=== PATIENT | female | born 1990 | race Caucasian/White ===

== ENCOUNTER 2019-10-06 10:07 | Emergency (ER) | payer OTHER, SELFPAY ==
[2019-10-06] MEDS ORDERED: DERMABOND SKIN ADHESIVE TOP ONE (11:18)
[2019-10-06] MEDS ORDERED: LIDOCAINE 1% W/EPI 1:100,000 MDV 20 ML VIAL ONE (11:41)
--- NOTE | 2019-10-06 12:04 | ER ---
Nurse's Notes [facility] Name: Gely Raymond Age: 28 yrs Sex: Female : 1990 Arrival Date: 10/06/2019 Time: 10:07 Bed 28 Private MD: Diagnosis: Superficial injury of head;Facial Laceration Presentation: 10/05 10:21 Chief complaint: Patient states: cut right side of forehead on piece of glass, bleeding iw controlled. Coronavirus screen: The patient has NOT traveled to [place] in the past 14 days. Proceed with normal triage procedures. Ebola Screen: Patient negative for fever greater than or equal to 101.5 degrees Fahrenheit, and additional compatible Ebola Virus Disease symptoms Patient denies exposure to infectious person. Patient denies travel to an Ebola-affected area in the 21 days before illness onset. No symptoms or risks identified at this time. Complicating Factors: There are no complicating factors for this patient. Initial Sepsis Screen: Does the patient meet any 2 criteria? No. Patient's initial sepsis screen is negative. Does the patient have a suspected source of infection? No. Patient's initial sepsis screen is negative. Risk Assessment: Do you want to hurt yourself or someone else? Patient reports no desire to harm self or others. 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 - Social history:: Smoking status: . Screenin:18 Abuse screen: Denies threats or abuse. Denies injuries from another. Nutritional aj1 screening: No deficits noted. Tuberculosis screening: No symptoms or risk factors identified. Assessment: 11:18 General: Appears in no apparent distress. comfortable, Behavior is calm, cooperative, aj1 appropriate for age. Pain: Complains of pain in right hinduism. Neuro: Level of Consciousness is awake, alert, obeys commands, Oriented to person, place, time, situation. Cardiovascular: Patient's skin is warm and dry. Respiratory: Airway is patent Respiratory effort is even, unlabored, Respiratory pattern is regular, symmetrical. GI: No signs and/or symptoms were reported involving the gastrointestinal system. : No signs and/or symptoms were reported regarding the genitourinary system. EENT: No signs and/or symptoms were reported regarding the EENT system. Derm: Skin is pink, warm \T\ dry. normal. Musculoskeletal: Circulation, motion, and sensation intact. Injury Description: Laceration sustained to right hinduism is bleeding moderately. 12:22 Reassessment: Patient appears in no apparent distress at this time. No changes from aj1 previously documented assessment. Patient and/or family updated on plan of care and expected duration. Pain level reassessed. Patient is alert, oriented x 3, equal unlabored respirations, skin warm/dry/pink. Vital Signs: 10:21 BP 118 / 90; Pulse 99; Resp 16; Temp 97.8; Pulse Ox 100% ; Weight 72.57 kg; Height 5 iw ft. 5 in. (165.10 cm); Pain 3/10; 10:21 Body Mass Index 26.63 (72.57 kg, 165.10 cm) iw ED Course: 10:07 Patient arrived in ED. as 10:13 Hugo Kim PA is PHCP. [facility] 10:13 Lito Gonzalez MD is Attending Physician. [facility] 10:22 Triage completed. iw 10:23 Arm band placed on. iw 10:54 Jayde Paul, PATRIA is Primary Nurse. aj1 11:18 Patient has correct armband on for positive identification. Bed in low position. Call aj1 light in reach. Side rails up X 1. 11:18 No provider procedures requiring assistance completed. aj1 11:20 Wound care: to laceration located on right hinduism was cleaned with Hibiclens, irrigated aj1 with normal saline, Patient tolerated well. 12:22 Patient did not have IV access during this emergency room visit. aj1 Administered Medications: 11:47 Drug: Lidocaine (1 %) 20 ml Volume: 20 ml; Route: Infiltration; aj1 12:20 Follow up: Response: No adverse reaction aj Outcome: 12:03 Discharge ordered by . [facility] 12:22 Discharged to home ambulatory. aj1 12:22 Condition: good 12:22 Discharge instructions given to patient, Instructed on discharge instructions, follow up and referral plans. wound care, Demonstrated understanding of instructions, follow-up care, wound care, Prescriptions given X 1. 12:23 Patient left the ED. aj1 Signatures: Jayde Paul RN RN aj1 Hugo Kim PA PA jmm Martinez, Amelia as Williams, Irene, RN RN iw
--- NOTE | 2019-10-06 12:04 | EDPHYS ---
Physician Documentation [facility] Name: Gely Raymond Age: 28 yrs Sex: Female : 1990 Arrival Date: 10/06/2019 Time: 10:07 Bed 28 Private MD: LI Physician Lito Gonzalez HPI: 10/05 10:37 This 28 yrs old Female presents to ER via Ambulatory with complaints of jmm Laceration To Head. 10:37 The patient or guardian reports injury, a laceration. The complaints affect the jmm forehead. Onset: The symptoms/episode began/occurred acutely, just prior to arrival. Associated signs and symptoms: Loss of consciousness: This patient did not experience any loss of consciousness. This is a 28 year old female with no chronic medical conditions that presents to the ED with a laceration to the right side of her forehead. Patient was cut while crawling into her window. Patient states she had to break the glass to get into her window. Patient is UTD on tetanus immunization.. 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 - Social history:: Smoking status: . ROS: 10:37 Constitutional: Negative for fever, chills, and weight loss, Cardiovascular: Negative jmm for chest pain, palpitations, and edema, Respiratory: Negative for shortness of breath, cough, wheezing, and pleuritic chest pain. 10:37 Skin: Positive for laceration(s). 10:37 Neuro: Negative for loss of consciousness. 10:37 All other systems are negative. Exam: 10:37 Constitutional: This is a well developed, well nourished patient who is awake, alert, jmm and in no acute distress. 10:37 Eyes: EOMI, no conjunctival erythema appreciated ENT: Moist Mucus Membranes Neck: Trachea midline, Supple Chest/axilla: Normal chest wall appearance and motion. Cardiovascular: Regular rate and rhythm. No edema appreciated Respiratory: Normal respirations, no respiratory distress appreciated Abdomen/GI: Non distended, soft Back: Normal ROM 10:37 Head/face: 2 cm laceration noted to the right side of the forehead. 10:37 Skin: 2 cm laceration noted to the right side of the forehead. 10:37 Neuro: Orientation: is normal, Mentation: is normal, Memory: is normal. 10:37 Psych: Behavior/mood is pleasant, cooperative. Vital Signs: 10:21 BP 118 / 90; Pulse 99; Resp 16; Temp 97.8; Pulse Ox 100% ; Weight 72.57 kg; Height 5 iw ft. 5 in. (165.10 cm); Pain 3/10; 10:21 Body Mass Index 26.63 (72.57 kg, 165.10 cm) iw Laceration: 12:02 Wound Repair of 3cm ( 1.2in ) subcutaneous laceration to right baptism. Distal m neuro/vascular/tendon intact. Anesthesia: Local anesthetic administered with 3 mls of 1% lidocaine w/ Epi. Wound prep: Simple cleansing with hibiclenz by me. Skin closed with 6 6-0 Prolene using simple sutures and sterile technique. Patient tolerated well. MDM: 10:24 Patient medically screened. [facility] 12:02 Data reviewed: vital signs, nurses notes. Counseling: I had a detailed discussion with [facility] the patient and/or guardian regarding: the historical points, exam findings, and any diagnostic results supporting the discharge/admit diagnosis, the need for outpatient follow up, to return to the emergency department if symptoms worsen or persist or if there are any questions or concerns that arise at home. ED course: Patient given wound infection return precautions. Patient understood and agrees with the plan of care. . 10/05 10:36 Order name: Wound Care; Complete Time: 11:18 [facility] 10/05 10:36 Order name: Dermabond; Complete Time: 11:18 [facility] Administered Medications: 11:47 Drug: Lidocaine (1 %) 20 ml Volume: 20 ml; Route: Infiltration; aj1 12:20 Follow up: Response: No adverse reaction aj1 Disposition: 18:17 Co-signature as Attending Physician, Lito Gonzalez MD I agree with the assessment and [facility] plan of care. Disposition: 10/06/19 12:03 Discharged to Home. Impression: Superficial injury of head, Facial Laceration. - Condition is Stable. - Discharge Instructions: Head Injury, Adult, Facial Laceration. - Medication Reconciliation Form, Thank You Letter, Antibiotic Education, Prescription Opioid Use form. - Follow up: Private Physician; When: 5 - 6 days; Reason: Staple/Suture removal. Signatures: Jayde Paul RN RN aj1 Lito Gonzalez MD MD cha Mickail, Joel, PA PA jmm Williams, Irene, RN RN iw Corrections: (The following items were deleted from the chart) 12:23 12:03 10/06/2019 12:03 Discharged to Home. Impression: Superficial injury of head; aj1 Facial Laceration. Condition is Stable. Forms are Medication Reconciliation Form, Thank You Letter, Antibiotic Education, Prescription Opioid Use. Follow up: Private Physician; When: 5 - 6 days; Reason: Staple/Suture removal. margaux
[2019-10-06 12:49] VITALS: BP 118/90; TEMP 97.8; O2SAT 100
== END 2019-10-06 12:23 | disposition home or self-care (01) ==
LOC: ER 10:07
PROC: 0JQ10ZZ Repair Face Subcutaneous Tissue and Fascia, Open Approach (ICD-10-PCS; principal; 2019-10-06)
DX: S01.81XA Laceration without foreign body of other part of head, initial encounter (principal); W25.XXXA Contact with sharp glass, initial encounter; Y93.9 Activity, unspecified; Y92.018 Other place in single-family (private) house as the place of occurrence of the external cause
CPT/HCPCS: 99284

== ENCOUNTER 2023-04-23 22:57 | Emergency (ER) | payer BC, OTHER ==
[2023-04-23] MEDS ORDERED: DIPHENHYDRAMINE 25 MG TAB/CAP ONE (23:59)
[2023-04-23] MEDS ORDERED: predniSONE 20 MG TAB ONE (23:59)
--- NOTE | 2023-04-24 00:42 | ER ---
Nurse's Notes [facility] Name: Gely Raymond Age: 32 yrs Sex: Female : 1990 Arrival Date: 04/23/2023 Time: 22:57 Bed 9 Private MD: Diagnosis: Other acute conjunctivitis Presentation: 04/23 23:16 Chief complaint: Patient states: itching, redness and swelling to bilateral pf1 conjunctiva,onset 2130, S/P touching eyes after handling dryer sheets. Patient stated took Benadryl 25mg at 2145. Coronavirus screen: Vaccine status: Patient reports being unvaccinated. Client denies travel out of the [place] in the last 14 days. At this time, the client does not indicate any symptoms associated with coronavirus-19. Ebola Screen: Patient negative for fever greater than or equal to 101.5 degrees Fahrenheit, and additional compatible Ebola Virus Disease symptoms. Initial Sepsis Screen: Does the patient meet any 2 criteria? HR > 90 bpm. No. Patient's initial sepsis screen is negative. Does the patient have a suspected source of infection? No. Patient's initial sepsis screen is negative. Risk Assessment: Do you want to hurt yourself or someone else? Patient reports no desire to harm self or others. 23:16 Method Of Arrival: Ambulatory pf1 23:16 Acuity: SPENCER 4 pf1 Triage Assessment: 23:25 General: see nurse assessment. 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 Last tetanus immunization: < 10 years ago Flu vaccine is not up to date. - Social history:: Smoking status: Patient denies any tobacco usage or history of. Patient/guardian denies using alcohol, street drugs. Screenin:24 [facility] ED Fall Risk Assessment (Adult) History of falling in the last 3 months, pf1 including since admission No falls in past 3 months (0 pts) Confusion or Disorientation No (0 pts) Intoxicated or Sedated No (0 pts) Impaired Gait No (0 pts) Mobility Assist Device Used No (0 pt) Altered Elimination No (0 pt) Score/Fall Risk Level 0 - 2 = Low Risk Oriented to surroundings, Maintained a safe environment, Educated pt \T\ family on fall prevention, incl call for assistance when getting out of bed, Assessed \T\ reinforced patient's understanding of fall precautions, Provided non-skid footwear, Hourly rounding (assess needs \T\ fall precautionary measures) done, Used ambulatory aids as needed (educated on \T\ assisted with), Used gait belt as appropriate. Abuse screen: Denies threats or abuse. Nutritional screening: No deficits noted. Tuberculosis screening: No symptoms or risk factors identified. Assessment: 23:25 General: Appears in no apparent distress. comfortable, well groomed, well developed, pf1 Behavior is calm, cooperative, appropriate for age, quiet. Pain: Denies pain. Neuro: No deficits noted. Level of Consciousness is awake, alert, obeys commands, Oriented to person, place, time, situation. Cardiovascular: No deficits noted. Capillary refill < 3 seconds Patient's skin is warm and dry. Respiratory: No deficits noted. Airway is patent Respiratory effort is even, unlabored, Respiratory pattern is regular, symmetrical. GI: No deficits noted. No signs and/or symptoms were reported involving the gastrointestinal system. : No deficits noted. No signs and/or symptoms were reported regarding the genitourinary system. EENT: Reports redness, swelling with itching to bilateral eye. Derm: No deficits noted. No signs and/or symptoms reported regarding the dermatologic system. 04/24 00:40 Reassessment: Patient and/or family updated on plan of care and expected duration. Pain pf1 level reassessed. Patient is alert, oriented x 3, equal unlabored respirations, skin warm/dry/pink. Patient states feeling better. Patient states symptoms have improved. Vital Signs: 04/23 23:16 BP 140 / 95; Pulse 95; Resp 16; Temp 98.1; Pulse Ox 98% on R/A; Weight 72.57 kg; Height pf1 5 ft. 5 in. ; Pain 0/10; 04/24 01:02 BP 133 / 85; Pulse 92; Resp 16; Pulse Ox 100% on R/A; pf1 04/23 23:16 Body Mass Index 26.63 (72.57 kg, 165.1 cm) pf1 04/23 23:16 Pain Scale: Adult pf1 ED Course: 04/23 23:03 Patient arrived in ED. es 23:03 Lito Mckeon PA is PHCP. cp 23:03 Juan Winn MD is Attending Physician. cp 23:23 Triage completed. pf1 23:27 Patient has correct armband on for positive identification. Bed in low position. Call pf1 light in reach. 23:27 Arm band placed on left wrist. pf1 23:27 No provider procedures requiring assistance completed. pf1 04/24 00:38 Martha Davison MD is Referral Physician. cp 01:03 Provided Education on: prescription education. pf1 01:03 Patient did not have IV access during this emergency room visit. pf1 Administered Medications: 04/23 23:51 Drug: diphenhydrAMINE PO 25 mg PO once Route: PO; 04/24 00:50 Follow up: Response: No adverse reaction; Marked relief of symptoms pf1 04/23 23:51 Drug: predniSONE PO 60 mg PO once Route: PO; 04/24 00:50 Follow up: Response: No adverse reaction pf1 Medication: :03 VIS not applicable for this client. pf1 Outcome: 00:41 Discharge ordered by MD. cp 01:03 Discharged to home ambulatory, pf1 01:03 Condition: improved 01:03 Discharge instructions given to patient, Instructed on discharge instructions, follow up and referral plans. Demonstrated understanding of instructions, follow-up care, medications, Prescriptions given X 3, 01:03 Patient left the ED. pf1 Signatures: Tata Smiley Corey, PA PA cp Garcia, Cindy, RN RN Blanca Bautista RN RN pf1 Corrections: (The following items were deleted from the chart) 04/23 23 23:16 Chief complaint: Patient states: itching, redness and swelling to pf1 conjunctiva,onset 0, S/P touching eyes after handling dryer sheets. Patient stated took Benadryl 25mg at 2145. pf1
--- NOTE | 2023-04-24 00:42 | EDPHYS ---
Physician Documentation [facility] Name: Gely Raymond Age: 32 yrs Sex: Female : 1990 Arrival Date: 04/23/2023 Time: 22:57 Bed 9 Private MD: ED Physician Juan Winn HPI: 04/23 23:40 This 32 yrs old Female presents to ER via Ambulatory with complaints of Eye cp Swelling. 23:40 The patient is experiencing redness, itching, swelling. Onset: The symptoms/episode cp began/occurred suddenly. Duration: the symptoms are continuous. Associated signs and symptoms: Pertinent negatives: fever, drainage. Patient does not utilize any form of vision correction. Patient reports she was handling dryer sheets and then happened to rub eyes prior to noticing redness, swelling and itching of eyes. Denies SOB, difficulty swallowing. 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 Last tetanus immunization: < 10 years ago Flu vaccine is not up to date. - Social history:: Smoking status: Patient denies any tobacco usage or history of. Patient/guardian denies using alcohol, street drugs. ROS: 23:45 Constitutional: Negative for body aches, chills, fever, poor PO intake, cp 23:45 Eyes: Positive for itching, redness, swelling, Negative for visual disturbance, cp 23:45 ENT: Negative for drainage from ear(s), ear pain, sore throat, difficulty swallowing, difficulty handling secretions, 23:45 Respiratory: Negative for cough, shortness of breath, wheezing, 23:45 Abdomen/GI: Negative for abdominal pain, nausea, vomiting, and diarrhea, 23:45 Skin: Negative for rash, 23:45 Neuro: Negative for altered mental status, headache, weakness, 23:45 All other systems are negative, Exam: 23:50 Constitutional: The patient appears in no acute distress, alert, awake, non-toxic, well cp developed, well nourished, 23:50 Head/Face: Normocephalic, atraumatic. cp 23:50 Eyes: Periorbital structures: appear normal, Pupils: equal, round, and reactive to light and accomodation, Extraocular movements: intact throughout, Conjunctiva: chemosis, that is mild, in right eye, injected, bilaterally, mild, Lids and lashes: appear normal, bilaterally, 23:50 ENT: External ear(s): are unremarkable, Nose: is normal, Mouth: Lips: moist, Oral mucosa: pink and intact, moist, Posterior pharynx: is normal, airway is patent, no erythema, no exudate, 23:50 Neck: ROM/movement: is normal, is supple, without pain, no range of motions limitations, Lymph nodes: no appreciated lymphadenopathy, 23:50 Chest/axilla: Inspection: normal, 23:50 Cardiovascular: Rate: normal, Rhythm: regular, 23:50 Respiratory: the patient does not display signs of respiratory distress, Respirations: normal, no use of accessory muscles, no retractions, labored breathing, is not present, Breath sounds: are clear throughout, no decreased breath sounds, 23:50 Skin: cellulitis, is not appreciated, no rash present. Vital Signs: 23:16 BP 140 / 95; Pulse 95; Resp 16; Temp 98.1; Pulse Ox 98% on R/A; Weight 72.57 kg; Height pf1 5 ft. 5 in. ; Pain 0/10; 18 01:02 BP 133 / 85; Pulse 92; Resp 16; Pulse Ox 100% on R/A; pf1 17 23:16 Body Mass Index 26.63 (72.57 kg, 165.1 cm) pf1 04/23 23:16 Pain Scale: Adult pf1 MDM: 04/23 23:30 Patient medically screened. cp 23:50 Differential diagnosis: Corneal abrasion of Foreign body in Acute iritis of 04/24 00:40 Data reviewed: vital signs, nurses notes. 00:40 I considered the following discharge prescriptions or medication management in the emergency department Medications were administered in the Emergency Department. See MAR. Counseling: I had a detailed discussion with the patient and/or guardian regarding the historical points, exam findings, and any diagnostic results supporting the discharge/admit diagnosis, to return to the emergency department if symptoms worsen or persist or if there are any questions or concerns that arise at home. Response to treatment: the patient's symptoms have markedly improved after treatment, and as a result, I will discharge patient. 04/23 23:35 Order name: Brad. Order: please rinse eyes at eye was station; Complete Time: 00:10 cp Administered Medications: 04/23 23:51 Drug: diphenhydrAMINE PO 25 mg PO once Route: PO; cg 04/24 00:50 Follow up: Response: No adverse reaction; Marked relief of symptoms pf1 04/23 23:51 Drug: predniSONE PO 60 mg PO once Route: PO; cg 04/24 00:50 Follow up: Response: No adverse reaction pf1 Disposition Summary: 04/24/23 00:41 Discharge Ordered Notes: Location: Home cp Problem: new cp Symptoms: have improved cp Condition: Stable cp Diagnosis - Other acute conjunctivitis cp Followup: cp - With: Martha Davison MD - When: 1 - 2 days - Reason: Recheck today's complaints Discharge Instructions: - Discharge Summary Sheet cp - Allergic Conjunctivitis, Adult cp Forms: - Medication Reconciliation Form cp - Thank You Letter cp - Antibiotic Education cp - Prescription Opioid Use cp - Patient Portal Instructions cp - Leadership Thank You Letter cp Prescriptions: - Pataday Twice Daily Relief 0.1 % Ophthalmic drops - instill 1 drop by OPHTHALMIC route 2 times per day separate doses by at least cp 6-8 hours; 1 unit; Refills: 0, Product Selection Permitted - Zyrtec 10 mg Oral Tablet - take 1 tablet by ORAL route once daily As needed; 20 tablet; Refills: 0, cp Product Selection Permitted - Prednisone 20 mg Oral Tablet - take 2 tablets by ORAL route once daily for 5 days; 10 tablet; Refills: 0, cp Product Selection Permitted Addendum: 04/25/2023 08:49 Co-signature as Attending Physician, Juan Winn MD I agree with the assessment s p4 and plan of care. I reviewed the patient's care provided by the Advanced Practice Provider and agree with the diagnosis and treatment plan. Signatures: Lito Mckeon PA PA cp Garcia, Cindy, RN RN Blanca Bautista RN RN pf1 Juan Winn MD MD sp4
[2023-04-24 01:55] VITALS: BP 133/85; TEMP 98.1; O2SAT 100
== END 2023-04-24 01:03 | disposition home or self-care (01) ==
LOC: ER 22:57
DX: H10.33 Unspecified acute conjunctivitis, bilateral (principal)
CPT/HCPCS: 99283; J7512